=== PATIENT | female | born 1930 | race Caucasian/White ===

== ENCOUNTER 2019-06-23 08:31 | Inpatient (IN) ==
--- NOTE | 2019-06-23 08:47 | PROVIDER DOCUMENTATION ---
HPI-Musculoskeletal Pain/Inj - GENERAL Stated Complaint: fall/right hip pain Time Seen by Provider: 06/23/19 08:34 Source: patient, family - HX OF PRESENT ILLNESS-MUSKULOSKELTAL Nature of Presenting Problem: Patient was at home and opening the utility room when she lost her balance and fell. She c/o right hip pain. She states she hip her head, but had no loc. Quality of Pain: reports: aching Severity in ED: severe Onset/Duration: abrupt, just prior to arrival Timing: still present Modifying Factors: improves with: movement Any recent injury?: Yes Locality of Occurance: Home Similar Symptoms Previously?: No Recently seen or treated by another doctor?: No - FALL INJURY Location of Pain/Injury: reports: lower extremity Pain Radiation: reports: no radiation Reason for Fall: reports: tripped Symptoms prior to fall:: reports: none Loss of Consciousness: no loss of consciousness Injury Associated Symptoms: reports: denies symptoms - HIP/PELVIS PAIN/INJURY Hip Pain Location: reports: hip (R) Pain Radiation: reports: no radiation Review of Systems - Adult - REVIEW OF SYSTEMS - ADULT Constitutional: reports: no symptoms reported Eyes: reports: no symptoms reported Ears, Nose, Mouth & Throat: reports: no symptoms reported Cardiovascular: reports: no symptoms reported Respiratory: reports: no symptoms reported Gastrointestinal: reports: no symptoms reported Genitourinary: reports: no symptoms reported Musculoskeletal: reports: see HPI Integumentary: reports: no symptoms reported Neurological: reports: no symptoms reported Psychiatric: reports: no symptoms reported Past History - Adult - PAST MEDICAL HISTORY-ADULT Review of Records: reports: Old Records Reviewed, Nursing Assessment Review Major Childhood Illnesses: reports: denies history Cardiovascular: reports: CAD, HTN Respiratory: reports: denies history Gastrointestinal: reports: other (irritable bowel like symptoms chronically) Genitourinary: reports: denies history Musculoskeletal: reports: arthritis Neurological: reports: denies history Psychiatric: reports: denies history Endocrine/Immune: reports: denies history - PRIOR SURGERIES/PROCEDURES Surgical/Procedure History: reports: cholecystectomy, back/neck, other (back surgery) - IMMUNIZATION STATUS Childhood Immunizations: See Nurse Assessment Flu Vaccine: See Nurse Assessment - FAMILY HISTORY Family History: reviewed, not pertinent Physical Exam-Injury Related - Physical Exam-Injury Related Initial Vital Signs Reviewed: Yes General Appearance: appears well, alert, mild distress Eyes: PERRL/EOMI Head, Ears, Nose, Mouth & Throat: normocephalic/atraumatic Neck: non-tender Respiratory: chest non-tender, lungs clear Cardiovascular: normal peripheral pulses, regular rate, rhythm, no edema, no gallop, no JVD, no murmur Abdominal Exam: normal bowel sounds, non tender, soft, no organomegaly Female Genitalia/Pelvic Exam: deferred Rectal Exam: deferred Lymphatic: no adenopathy Back Exam: normal inspection Extremity: tenderness (pain over right hip. right leg is shortened. bruise on right schroeder) - Glascow Coma Score Best Eye Response ([place]): (4) open spontaneously Best Verbal Response ([place]): (5) oriented Best Motor Response ([place]): (6) obeys commands Progress - PLAN OF CARE/RESULTS Progress/Plan/Lab Results: Vital Signs - 8 hr 06/23/19 08:38 Temperature 97.8 F Pulse Rate 77 Respiratory Rate 20 Blood Pressure 184/80 O2 Sat by Pulse Oximetry 99 Laboratory Results - last 24 hr 06/23/19 06/23/19 06/23/19 08:48 08:48 08:48 WBC 8.85 RBC 4.15 L Hgb 12.3 Hct 38.9 MCV 93.7 MCH 29.6 MCHC 31.6 L RDW Std Deviation 14.1 Plt Count 283 MPV 11.0 H Immature Gran % (Auto) 0.7 H Neut % (Auto) 54.9 Lymph % (Auto) 34.8 [place] % (Auto) 7.9 Eos % (Auto) 1.4 Baso % (Auto) 0.3 Immature Gran # (Auto) 0.06 H Neut # (Auto) 4.86 Lymph # (Auto) 3.08 [place] # (Auto) 0.70 H Eos # (Auto) 0.12 Baso # (Auto) 0.03 PT INR PTT (Actin FS) 23.8 Sodium 139 Potassium 3.9 Chloride 100 Carbon Dioxide 26 Anion Gap 13 BUN 21 Creatinine 0.9 Estimated GFR/1.73 m2 59 BUN/Creatinine Ratio 23 Glucose 127 H Calculated Osmolality 282 Calcium 9.7 Total Bilirubin 0.31 AST 23 ALT 15 Alkaline Phosphatase 70 Troponin T High Sens Total Protein 7.1 Albumin 4.0 Globulin 3.1 Albumin/Globulin Ratio 1.3 06/23/19 06/23/19 08:48 08:48 WBC RBC Hgb Hct MCV MCH MCHC RDW Std Deviation Plt Count MPV Immature Gran % (Auto) Neut % (Auto) Lymph % (Auto) [place] % (Auto) Eos % (Auto) Baso % (Auto) Immature Gran # (Auto) Neut # (Auto) Lymph # (Auto) [place] # (Auto) Eos # (Auto) Baso # (Auto) PT 13.0 INR 0.97 PTT (Actin FS) Sodium Potassium Chloride Carbon Dioxide Anion Gap BUN Creatinine Estimated GFR/1.73 m2 BUN/Creatinine Ratio Glucose Calculated Osmolality Calcium Total Bilirubin AST ALT Alkaline Phosphatase Troponin T High Sens 26 H Total Protein Albumin Globulin Albumin/Globulin Ratio Orders Category Date Time Status CHEST-PORTABLE [RAD] Stat Exams 06/23/19 08:39 Completed XRAY HIP UNILATERAL RT [RAD] Stat Exams 06/23/19 08:40 Completed CBC WITH ELECTRONIC DIFF [HEME] Stat Lab 06/23/19 08:48 Completed CK PROFILE [SP CHEM] Stat Lab 06/23/19 08:48 Received COMPREHENSIVE METABOLIC PANEL [CHEM] Stat Lab 06/23/19 08:48 Completed PROTIME WITH INR [COAG] Stat Lab 06/23/19 08:48 Completed PTT [COAG] Stat Lab 06/23/19 08:48 Completed TROPONIN T HIGH SENSITIVITY Stat Lab 06/23/19 08:48 Completed Hydromorphone [Dilaudid] Med 06/23/19 08:48 Discontinued 0.5 mg IV NOW ONE EKG [EKG] Stat Ther 06/23/19 09:11 Ordered Result Diagrams: 06/23/19 08:48 06/23/19 08:48 - EKG 1 Time of EKG reading by physician:: 09:34 EKG Read and Signed by:: Martin Bartlett EKG Interpretation (*Must complete 3 of following elements*): Abnormal Rate: 68 Rhythm: sinus [place]: normal QRS: poor R wave progression (no change) ST Wave: non-specific ST changes (t wave inversion laterally. Poss. ischemia. changed from 2018) - CONSULTS/PCP/HOSPITALIST Notification #1 *Consult/PCP/Hospitalist*: Dr Hickey Time Discussed: 09:47 (Admit to hospitalist) #2 Consult: Adrianna CAO Time Discussed: 10:44 Consult Disposition: Will see in ED Departure - Departure Date of Disposition Decision: 06/23/19 Time of Disposition Decision: 10:44 DIAGNOSIS: Abnormal electrocardiogram [ECG] [EKG] Closed right hip fracture Qualifiers: Encounter type: initial encounter Qualified Code(s): S72.001A - Fracture of unspecified part of neck of right femur, initial encounter for closed fracture Disposition: ADMITTED INPATIENT 09 Certified Medical Emergency: Emergent Condition: Fair Referrals and Follow-Ups: Ravinder Cole MD [Primary Care Provider] - - Critical Care Note This patient required my direct & personal management of CC.: No Attestation - Physician/ ZAHRA Attestation Patient care was provided by Advanced Practice Provider:: No The physician spent face to face time with patient:: Yes Advanced Practice Provider documentation review:: Supervising physician onsite and consulted in the evaluation and care of this patient. The physician did have a face to face encounter with the patient.
[2019-06-23] MEDS ORDERED: DILAUDID IV ONE ×2 (08:48→10:48)
--- NOTE | 2019-06-23 09:07 | Diag Imaging Result Doc PS360 ---
EXAM: CHEST-PORTABLE 06/23/2019 HISTORY: fall TECHNIQUE: AP portable semiupright at 0855 COMMENT: There is no evidence of acute cardiac or pulmonary disease. Compared to 12/12/2017 there has been no significant change. IMPRESSION: Stable chest. Electronically signed by Sree Paez 06/23/2019 9:05 AM
--- NOTE | 2019-06-23 09:07 | Diag Imaging Result Doc PS360 ---
EXAM: XRAY HIP UNILATERAL RT 06/23/2019 HISTORY: fall / hip pain TECHNIQUE: Right hip portable AP and crosstable lateral COMMENT: There is a fracture of the right femoral neck. There is extensive calcification in the superficial femoral artery on the left. IMPRESSION: Right femoral neck fracture. Electronically signed by Sree Paez 06/23/2019 9:05 AM
[2019-06-23 09:28] LABS: BASO# 0.03 X1000 (0.0-0.2); BASO% 0.3 % (0.0-0.8); EOS# 0.12 X1000 (0.0-0.7); EOS% 1.4 % (0.0-10.0); HEMATOCRIT 38.9 % (37.0-47.0); HEMOGLOBIN 12.3 g/dL (12.0-16.0); IMM GRAN# 0.06 X1000 (0.0-0.04); IMM GRAN% 0.7 % (0.0-0.5); LYMPH# 3.08 X1000 (1.2-3.4); LYMPH% 34.8 % (20.5-51.1); MCH 29.6 PG (27-31); MCHC 31.6 g/dL (33-37); MCV 93.7 FL (81-99); MONO% 7.9 % (1.7-9.3); NEUT# 4.86 X1000 (1.4-6.5); NEUT% 54.9 % (42.2-75.2); PLT 283 X1000 (130-400); RBC 4.15 XMIL (4.2-5.4); RDW 14.1 % (11.5-14.5); WBC 8.85 X1000 (4.8-10.8)
[2019-06-23 09:37] LABS: ALB/GLOB RATIO 1.3; CALCIUM 9.7 mg/dL (8.8-10.2); CREATININE 0.9 mg/dL (0.5-0.9); INR 0.97; POTASSIUM 3.9 mmol/L (3.5-5.1); TOTAL BILIRUBIN 0.31 mg/dL (0.20-1.00); TOTAL PROTEIN 7.1 g/dL (6.3-8.3)
[2019-06-23] MEDS ORDERED: TYLENOL PO PRN (10:55)
[2019-06-23] MEDS ORDERED: NS 1,000 ML IV SCH (11:00)
[2019-06-23 11:55] LABS: URINE SOURCE CATH
[2019-06-23 12:17] LABS: BILIRUBIN URINE NEGATIVE (NEGATIVE); BLOOD URINE NEGATIVE (NEGATIVE); COLOR YELLOW; GLUCOSE URINE NEGATIVE (NEGATIVE); KETONE URINE NEGATIVE (NEGATIVE); LEUKOCYTES URINE NEGATIVE (NEGATIVE); NITRITE URINE NEGATIVE (NEGATIVE); PROTEIN URINE NEGATIVE (NEGATIVE); SP GRAVITY URINE 1.013; TURBIDITY URINE CLEAR (CLEAR); UROBILINOGEN URINE NORMAL (NORMAL)
[2019-06-23 12:18] LABS: UR EPITHELIAL CELLS <10 /HPF (<10); URINE BACTERIA NEGATIVE /HPF; URINE RBC <10 /HPF (<10); URINE WBC <10 /HPF (<10)
--- NOTE | 2019-06-23 14:43 | Diag Imaging Result Doc PS360 ---
EXAM: CT HEAD/C-SPINE W/O CONTRAST 06/23/2019 HISTORY: mechanical fall and hit head TECHNIQUE: This exam was performed using automated exposure control, adjustment of mA or kV according to patient size, and/or use of iterative reconstruction technique. COMMENT: There are dense calcifications in the vertebral and internal carotid arteries. There is extensive abnormal lucency in the white matter of both hemispheres particularly in the frontal lobes. Compared to 10/13/2017 there has been no significant change in the appearance of the brain. There is no evidence of bleed or abnormal extra-axial fluid collection. The calvarium is intact. The visualized paranasal sinuses are clear. Cervical spine: There are marked degenerative changes in the anterior atlantoaxial joint and the C1-2 facets. This is particularly severe on the right side. There is no evidence of prevertebral soft tissue swelling. There is posterior osteophyte formation at the C2-3 level. There is ankylosis at C3-4 and C4-5. Severe degenerative disc disease is present at C5-6 with posterior osteophyte formation and disc space narrowing and also at the C7-T1 level. There is vacuum phenomenon in the body of C7 on the right. The facets are aligned. There is degenerative facet disease at the C3-4 level on the left with ankylosis and there is ankylosis at C4-5 on the left. There are hypertrophic changes at the C6-7 level on the left and degenerative facet changes in the right C2-3 and C5-6 and C6-7 levels is present. IMPRESSION: Chronic ischemic microvascular white matter disease. Degenerative changes in the cervical spine as described. Electronically signed by Sree Paez 06/23/2019 2:41 PM
[2019-06-23] MEDS: DILAUDID IV PRN ×2 (15:11→22:06)
[2019-06-23] MEDS: ZOFRAN IV PRN ×2 (15:19→22:06)
--- NOTE | 2019-06-23 15:30 | HISTORY AND PHYSICAL ---
PRIMARY CARE PROVIDER: Dr. Ravinder Cole. CHIEF COMPLAINT: Fall with right hip pain. HISTORY OF PRESENT ILLNESS: Ms. Kenzie Sheridan is an 88-year-old female with a medical history of large hiatal hernia and GERD, iron deficiency anemia, interstitial cystitis, hypertension, rheumatoid arthritis, coronary artery disease with a history of coronary artery bypass grafting back in 2000. Is now here after having a fall and experiencing right hip pain with a lump on the back of her head. She states she did not pass out. She did not get dizzy. She simply opened the door, turned around to go back in the opposite direction and lost her balance and fell. Workup revealed that she has a right femoral neck fracture. We will get a head CT to make sure there is no problems with that. Otherwise, there are no other abnormal findings. PAST MEDICAL HISTORY: 1. History of colitis. 2. Osteoarthritis. 3. Rheumatoid arthritis on prednisone. 4. Interstitial cystitis. She still has burning and nocturnal excessive urination. 5. Hypertension. 6. Iron deficiency anemia. 7. Coronary artery disease with NH and CABG x4 back in 2000. 8. Glaucoma with surgery. 9. Large hiatal hernia with GERD and at least 2 reflux spells per day. 10. Pulmonary artery hypertension with a systolic pressure of 51 mmHg back in November 2017 on an echo. SURGICAL HISTORY: 1. Coronary artery bypass grafting x4, November 2000. 2. Hysterectomy. 3. Cholecystectomy. 4. Multiple bilateral foot surgeries to straighten toes due to the arthritis. 5. Intra-abdominal abscess drainage. 6. Bilateral cataracts. 7. Glaucoma surgery. SOCIAL HISTORY: Denies tobacco, alcohol or illicit drug use. Lives at home with her . She has been advised to use a walker or cane, but she does not. She actually has decent balance. She goes to the mall and walks daily. She has home health. FAMILY HISTORY: Denies. ALLERGIES: Tramadol and morphine. HOME MEDICATIONS: Have not been reconciled yet. REVIEW OF SYSTEMS: Fourteen point review of systems are complete and all were negative except for those mentioned in above HPI. PHYSICAL EXAMINATION: VITAL SIGNS: Temperature 97.8 degrees, heart rate 77, respiratory rate 20, blood pressure 184/80, O2 saturation 99% on room air, 5 foot 0 inch tall, 84 pounds, BMI of 16.4. GENERAL: Ms. Kenzie Sheridan is an 88-year-old female. She is in no acute distress. She is able answer questions appropriately. HEENT: Atraumatic, normocephalic. Pupils equal, round, reactive to light. Extraocular movements intact. Mucous membranes are dry. NECK: Trachea midline. CARDIOVASCULAR: S1, S2. Regular rate and rhythm. No rubs, gallops, or murmurs. No lower extremity edema. +2 dorsalis and radial pulses. Negative JVD or carotid bruits. PULMONARY: Clear to auscultate bilateral breath sounds. No accessory muscle use or work of breathing noted. GI: Soft, nontender, nondistended. Positive bowel sounds x4. EXTREMITIES: Unable to move the right lower extremity but can wiggle toes. This is due to the fracture. All other extremities move equally with equal strength with decreased range of motion. NEUROLOGIC: A and O x3. Follows commands. Sensory is intact. SKIN: Warm, dry, intact. LABORATORY DATA: White blood cells 8000, hemoglobin 12, hematocrit 38, platelet count 283,000. INR 0.97, PTT is 23.8. Sodium 139, potassium 3.9, BUN 21, creatinine 0.9, glucose 127, calcium 9.7, bilirubin 0.31, AST 23, ALT 15, CK 82, troponin is 26. ProBNP is 538. Albumin 4.0. IMAGING: Chest x-ray: No acute findings. Right hip x-ray: Right femoral neck fracture. ASSESSMENT AND PLAN: 1. Fall due to balance issues. She had lost her balance, so she will be on fall precautions. 2. Right femoral neck fracture secondary to a mechanical fall. She will be on Manzo's traction. Dr. Cisse has been consulted with plans for surgery tomorrow. Type and screen is obtained, pain medication, antiemetics ordered. She can be with a regular diet up until midnight and she will be NPO. 3. EKG shows lateral T-wave inversions. Apparently, this is new. She has a history of coronary artery disease and coronary artery bypass graft. Troponins 26, not really yet elevated so we will do another round of cardiac enzymes between 3 and 4 today. She denies any chest pain, and will repeat EKG in the morning. 4. Large hiatal hernia with GERD. We will continue with proton pump inhibitor once her home medications are verified. 5. Hypertension. Waiting for home medications to be verified. She is actually hypertensive right now but this is secondary to the pain of the right hip. 6. Rheumatoid arthritis with osteoarthritis. She is on home prednisone. Again, I am still waiting on the home medications to be reconciled so we can get that resumed. 7. Interstitial cystitis. We are going to get a urinalysis. She does state that she has burning when she urinates and she has urinary frequency at night. 8. History of pulmonary artery hypertension, November of 2017 with result of 51 mmHg. No shortness of breath noted at this time. 9. Deep venous thrombosis prophylaxis. SCDs. 10. Head bump. She has got head CT. Dictated by KILEY France for Pedro Hazel MD Addendum: Patient seen and examined by myself. Agree with KILEY note. It reflects my assessment and plan. Patient is being admitted to hospital for right hip fracture. Orthopedics has been consulted. Will monitor patient. closely. cc: KILEY France MD [facility]
[2019-06-23] MEDS ORDERED: BLISTEX MEDICATED BERRY LIP BALM TOP ONE (15:35)
--- NOTE | 2019-06-23 16:10 | ORTHOPAEDICS CONSULTATION ---
DATE: 06/23/2019 CHIEF COMPLAINT: Right hip pain. HISTORY OF PRESENT ILLNESS: Patient was an 88-year-old female who is status post fall earlier this morning at home. The patient reports that she was opening the utility room, lost her balance and fell to the ground, developed immediate pains from her right hip. She denies loss of conscious. Describes pain as being severe in nature. She presented to the emergency room. X- rays were obtained with a right displaced femoral neck fracture. Orthopedic consultation was requested. ALLERGIES: Tramadol and morphine. PAST MEDICAL HISTORY: Rheumatoid arthritis, interstitial cystitis, hypertension, anemia of chronic disease, mild chronic kidney disease, coronary artery disease, glaucoma. PAST SURGICAL HISTORY: Coronary artery bypass grafting, hysterectomy, cholecystectomy, multiple foot surgeries, intra-abdominal abscess drained a couple years ago. PHYSICAL EXAMINATION: General: Patient is awake, alert, and cooperative with exam. Neck/extremities: Cervical spine is nontender to palpation. Her bilateral upper extremities have no acute palpable deformity. Patient has significant deformity of the wrist and fingers secondary to rheumatoid arthritis. She has good capillary refill distally. Her right lower extremity is shortened and externally rotated. Has significant tenderness to palpation. Tenderness to gentle movement. Calf is soft. She has active dorsiflexion, plantar flexion. The left lower extremity has no palpable deformity along the left hip, knee or ankle. She is neurovascularly intact distally. IMAGING: X-rays were reviewed and revealed a right displaced femoral neck fracture. IMPRESSION: Right displaced femoral neck fracture. PLAN: Discussed treatment options with patient and family. At this time, would recommend hemiarthroplasty, right hip. Risks of surgery were explained, including the risks of anesthesia, , bleeding, infection, failure to relieve pain, postoperative stiffness, nerve injury, blood clots, dislocation and other imponderables. All questions were answered. Patient and family agree with treatment plan. Will plan on proceeding with surgery after obtaining preoperative medical clearance. cc: Faizan Cisse MD
--- NOTE | 2019-06-23 18:01 | EKG Report ---
Test Performed on : 06/23/2019 09:30:57 AM Test Reason : hip fracture Blood Pressure : / mmHG Vent. Rate : 068 BPM Atrial Rate : 068 BPM P-R Int : 196 ms QRS Dur : 078 ms QT Int : 370 ms P-R-T Axes : 092 001 -35 degrees QTc Int : 393 ms Undetermined rhythm Septal infarct (cited on or before 23-DEC-2016) ST & T wave abnormality, consider inferolateral ischemia Abnormal ECG When compared with ECG of 07-DEC-2017 06:34, Current undetermined rhythm precludes rhythm comparison, needs review T wave inversion more evident in Inferior leads T wave inversion now evident in Lateral leads QT has shortened Unconfirmed Result
[2019-06-23] MEDS: NORCO-7.5 PO PRN (18:29)
[2019-06-23] MEDS: APRESOLINE PO SCH (22:55)
[2019-06-23] MEDS: NORVASC PO SCH (22:55)
[2019-06-24] MEDS: DILAUDID IV PRN ×2 (01:06→13:32)
[2019-06-24] MEDS: NORCO-7.5 PO PRN ×2 (06:48→18:42)
[2019-06-24 07:12] LABS: BASO# 0.03 X1000 (0.0-0.2); BASO% 0.3 % (0.0-0.8); EOS# 0.05 X1000 (0.0-0.7); EOS% 0.4 % (0.0-10.0); HEMATOCRIT 40.6 % (37.0-47.0); HEMOGLOBIN 12.9 g/dL (12.0-16.0); IMM GRAN# 0.04 X1000 (0.0-0.04); IMM GRAN% 0.4 % (0.0-0.5); LYMPH% 9.8 % (20.5-51.1); MCH 30.1 PG (27-31); MCHC 31.8 g/dL (33-37); MCV 94.6 FL (81-99); MONO# 0.99 X1000 (0.11-0.59); MONO% 8.8 % (1.7-9.3); MPV 10.9 FL (7.4-10.4); NEUT# 8.98 X1000 (1.4-6.5); NEUT% 80.3 % (42.2-75.2); PLT 244 X1000 (130-400); RBC 4.29 XMIL (4.2-5.4); WBC 11.19 X1000 (4.8-10.8)
[2019-06-24 07:55] LABS: AGAP 9; ALB/GLOB RATIO 1.1; ALBUMIN 3.8 g/dL (3.5-5.0); ALKALINE PHOSPHATASE 76 U/L (32-104); BUN 15 mg/dL (8-22); CALCIUM 9.1 mg/dL (8.8-10.2); CHLORIDE 96 mmol/L (98-107); COSMO 267; CREATININE 0.7 mg/dL (0.5-0.9); ESTIMATED GFR > 60; GLUCOSE 103 mg/dL (70-104); GOT 24 U/L (10-30); GPT 15 U/L (10-36); MAGNESIUM 1.4 mg/dL (1.5-2.7); POTASSIUM 3.6 mmol/L (3.5-5.1); SODIUM 133 mmol/L (136-145); TCO2 28 mmol/L (25-35); TOTAL PROTEIN 7.2 g/dL (6.3-8.3)
--- NOTE | 2019-06-24 08:34 | ORTHOPAEDICS PROGRESS NOTE ---
DATE: 06/24/2019 SUBJECTIVE: The patient is a pleasant, 88-year-old female, who is 1 day status post fall, sustaining a right displaced femoral neck fracture. She was admitted to the hospital, and underwent preoperative medical clearance. She presented to the emergency room, and x-rays revealed a right displaced femoral neck fracture. PHYSICAL EXAMINATION: The patient's right lower extremity is shortened and externally rotated. Calf is soft. She has active dorsiflexion and plantar flexion. LABORATORY DATA: Her hemoglobin and hematocrit are 12.9 and 40.6. IMPRESSION: Right displaced femoral neck fracture. PLAN: She is scheduled to undergo an EKG this morning, and she is planning on proceeding with hemiarthroplasty of the right hip if she is medically cleared later this morning. Risks and benefits were discussed, and all questions were answered. The patient and family agree with treatment plan. cc: Faizan Cisse MD
[2019-06-24] MEDS ORDERED: FENTANYL ONE (09:16)
[2019-06-24] MEDS ORDERED: XYLOCAINE-MPF 2% ONE (09:16)
[2019-06-24] MEDS ORDERED: DIPRIVAN 1% ONE (09:16)
[2019-06-24] MEDS ORDERED: NEOSPORIN G.U. IRRIGANT ONE (09:41)
[2019-06-24] MEDS ORDERED: DILAUDID IV ONE (09:51)
--- NOTE | 2019-06-24 10:20 | PROGRESS NOTE ---
DATE: 06/24/2019 SUBJECTIVE: Patient reports feeling, still, excruciating pain in the right hip. OBJECTIVE: Vital Signs: Temperature 98.2 degrees, heart rate 71, respiratory rate 17, blood pressure 142/52, O2 saturation 100% on 2 L nasal cannula. General Examination: This is a chronically ill-appearing, 88-year-old, female lying in bed, in no acute distress. Cardiovascular Examination: S1 and S2 heard. No murmurs, gallops, or rubs. Regular rate and rhythm. Respiratory Examination: Clear bilaterally to auscultation. No work of breathing or using accessory muscles. Abdomen: Soft. Nontender to palpation. Nondistended. Bowel sounds present. No organomegaly. Extremities: Unable to move the right lower extremity. She can still wiggle the toes. Neurological Examination: The patient is alert and oriented x3. Moves 4 extremities. Laboratory Data: Reviewed. ASSESSMENT AND PLAN: 1. Right femoral neck fracture secondary to mechanical fall. The patient is in Manzo traction. Orthopedics have been consulted. From our standpoint, the patient is medically stable and we can proceed with surgery. 2. Large hiatal hernia with gastroesophageal reflux disease. We will continue with Protonix. 3. Hypertension. We had restarted blood pressure medications yesterday. She has a better blood pressure today. We will continue to monitor. 4. Rheumatoid arthritis with osteoarthritis. She is on home prednisone, I think, at this point. We will restart small doses of prednisone by now. 5. History of pulmonary artery hypertension. Aware. She is not complaining of any shortness of breath. We will continue to monitor. 6. Interstitial cystitis. Urinalysis has been ordered in the emergency room. That is completely normal so, at this point, no concerns for any infection. cc: Pedro Hazel MD
[2019-06-24] MEDS ORDERED: KEFZOL 1 GM/D5W 1 GM/50 ML IVPB ONE (10:27)
[2019-06-24] MEDS ORDERED: EPHEDRINE ONE (10:52)
[2019-06-24] MEDS ORDERED: ZOFRAN ONE (10:57)
[2019-06-24] MEDS ORDERED: MORPHINE IV PRN (12:23)
[2019-06-24] MEDS ORDERED: ZOFRAN IV PRN (12:23)
[2019-06-24] MEDS ORDERED: OXY IR PO PRN (12:23)
[2019-06-24] MEDS ORDERED: HALDOL IV PRN (12:30)
--- NOTE | 2019-06-24 12:33 | Diag Imaging Result Doc PS360 ---
EXAM: HIP 1 VIEW RIGHT 06/24/2019 HISTORY: rt bipolar hip TECHNIQUE: Right hip AP portable at 1222 COMMENT: There is a bipolar hip prosthesis. No evidence of acute bony abnormality is otherwise present. IMPRESSION: Postsurgical changes. Electronically signed by Sree Paez 06/24/2019 12:31 PM
[2019-06-24] MEDS ORDERED: NS 1,000 ML ONE (12:34)
[2019-06-24] MEDS ORDERED: HYDROCODONE/APAP 7.5-325/15 ML PO ONE (12:45)
--- NOTE | 2019-06-24 14:12 | OPERATIVE NOTE ---
PROCEDURE DATE: 06/24/2019 PREOPERATIVE DIAGNOSIS: Right displaced femoral neck fracture. POSTOPERATIVE DIAGNOSIS: Right displaced femoral neck fracture. PROCEDURE PERFORMED: Hemiarthroplasty of right hip with DePuy Actis size 4 press-fit stem, a 28, + 1.5 femoral head, with a 28 x 42 bipolar head. SURGEON: Faizan Cisse MD. ANESTHESIA: Spinal. IV FLUIDS: Lactated Ringer's, 800 mL. ESTIMATED BLOOD LOSS: 100 mL. COMPLICATIONS: None. INDICATIONS: This is a pleasant, 88-year-old female who is 1 day status post fall, sustaining a right displaced femoral neck fracture. She was admitted to the hospital. Orthopedic consultation was requested. Recommendation to proceed with hemiarthroplasty of the right hip was offered. Risks and benefits of surgery were explained including the risks of anesthesia, , bleeding, infection, failure to relieve pain, postoperative stiffness, nerve injury, blood clots, dislocation, and other imponderables. All questions were answered. The patient and family wished to proceed with surgery. DETAILS OF OPERATION: The patient was taken to the operating room and underwent spinal anesthesia. After adequate anesthesia was obtained, she was placed in left lateral decubitus position on a mei bag with an axillary roll. The right hip was subsequently prepped and draped in the usual sterile fashion. A standard lateral incision was made on the hip and a posterior approach was performed. The incision was carried down through the gluteus jordin. Charnley retractors were then placed. The piriformis tendon was then identified and a stay suture was placed. The piriformis tendon along with short external rotators were then released. A T-shaped capsulotomy was then performed. A #1 Vicryl was then placed on each corner of the posterior capsule. Attention then turned to the femoral neck where approximately 1 fingerbreadth proximal to the lesser trochanter, the femoral neck was resected. After this had been performed, the femoral head was then removed. After that, a box chisel was then used to start in the intramedullary canal of the femur. This was followed by a starting hand model. Sequential broaching was then performed up to a size 4. This was then reamed. A calcar planer was then placed and reaming of the calcar was performed. A 28, +1.5 femoral head with a 28 x 42 bipolar head was then placed. The hip was then reduced, carried through a range of motion. It had excellent stability and range of motion of the hip. The trial implants were then removed. The wound was copiously irrigated with pulsatile lavage. A size 4 DePuy Actis press-fit stem was then impacted. It had good fit. A 28, +1.5 femoral head with a 28 x 42 bipolar head was then placed. The hip was then reduced, carried through a range of motion. It had a good range of motion and good stability. The wound was copiously irrigated. Number 1 Vicryl was then used to repair the posterior capsule, followed by #1 Vicryl to repair the piriformis tendon. Copious irrigation was then performed once again with the pulsatile lavage. The Charnley retractor was removed. Irrigation was performed once again. After this had been conducted, #1 Vicryl was then used to repair the gluteus jordin in a running fashion, 2-0 Vicryl was used to repair the subcutaneous tissue, followed by skin shira. Adaptic, sterile 4 x 4s, ABD pad, and tape were applied to the right hip. The patient tolerated the procedure well and was transferred to the recovery room in stable condition. cc: Faizan Cisse MD
[2019-06-24] MEDS ORDERED: BENADRYL IV PRN (15:13)
[2019-06-24] MEDS ORDERED: BENADRYL PO PRN (15:31)
[2019-06-24] MEDS: COZAAR PO SCH (15:35)
[2019-06-24] MEDS: APRESOLINE PO SCH ×3 (15:35→22:30)
[2019-06-24] MEDS: NORVASC PO SCH ×2 (15:36→22:35)
[2019-06-24] MEDS: TYLENOL PO SCH (15:51)
--- NOTE | 2019-06-24 17:05 | EKG Report ---
Test Performed on : 06/24/2019 06:39:09 AM Test Reason : twave eval preop Blood Pressure : / mmHG Vent. Rate : 076 BPM Atrial Rate : 076 BPM P-R Int : 210 ms QRS Dur : 088 ms QT Int : 346 ms P-R-T Axes : 085 004 -41 degrees QTc Int : 389 ms Sinus rhythm. with 1st degree AV block. ST & T wave abnormality, consider lateral ischemia Abnormal ECG When compared with ECG of 23-JUN-2019 09:30, (Unconfirmed) Previous ECG has undetermined rhythm, needs review Confirmed by Claudio RAYGOZA, Fracisco Han ([id number]) on 06/24/2019 10:26:54 PM
[2019-06-24] MEDS: KEFZOL 1 GM/D5W 1 GM/50 ML IVPB IV SCH (18:44)
[2019-06-24] MEDS: COLACE PO SCH (22:35)
[2019-06-24] MEDS: PREDNISONE PO SCH (22:38)
[2019-06-25] MEDS: TYLENOL PO SCH ×4 (00:02→16:45)
[2019-06-25] MEDS: NS 1,000 ML IV SCH ×2 (01:33→15:40)
[2019-06-25] MEDS: KEFZOL 1 GM/D5W 1 GM/50 ML IVPB IV SCH ×2 (01:33→10:43)
--- NOTE | 2019-06-25 06:59 | ORTHOPAEDICS PROGRESS NOTE ---
DATE: 06/25/2019 SUBJECTIVE: The patient is a pleasant, 88-year-old female who is 1 day status post hemiarthroplasty of the right hip. Patient is currently resting comfortably. PHYSICAL EXAMINATION: The patient's right lower extremity dressing is intact. Her calf is soft. She is able to flex and extend her toes. Compartments are soft. LABORATORY DATA: Her labs are pending. IMPRESSION: Postoperative day #1 status post hemiarthroplasty of the right hip. PLAN: At this point, we will begin mobilization, physical therapy with weightbearing as tolerated to the right lower extremity. We will consult [facility] for discharge planning. cc: Faizan Cisse MD
[2019-06-25 07:30] LABS: BASO# 0.01 X1000 (0.0-0.2); BASO% 0.1 % (0.0-0.8); HEMATOCRIT 33.4 % (37.0-47.0); HEMOGLOBIN 10.4 g/dL (12.0-16.0); IMM GRAN# 0.05 X1000 (0.0-0.04); IMM GRAN% 0.3 % (0.0-0.5); LYMPH# 0.65 X1000 (1.2-3.4); LYMPH% 3.3 % (20.5-51.1); MCH 29.5 PG (27-31); MCHC 31.1 g/dL (33-37); MCV 94.6 FL (81-99); MONO# 1.04 X1000 (0.11-0.59); MONO% 5.4 % (1.7-9.3); MPV 11.2 FL (7.4-10.4); NEUT# 17.67 X1000 (1.4-6.5); NEUT% 90.9 % (42.2-75.2); PLT 215 X1000 (130-400); RBC 3.53 XMIL (4.2-5.4); RDW 13.8 % (11.5-14.5); WBC 19.42 X1000 (4.8-10.8)
[2019-06-25] MEDS: XARELTO PO SCH (07:37)
[2019-06-25 07:48] LABS: AGAP 10; ALBUMIN 2.8 g/dL (3.5-5.0); ALKALINE PHOSPHATASE 65 U/L (32-104); BUN 12 mg/dL (8-22); CALCIUM 8.6 mg/dL (8.8-10.2); CHLORIDE 101 mmol/L (98-107); COSMO 274; CREATININE 0.7 mg/dL (0.5-0.9); ESTIMATED GFR > 60; GLUCOSE 137 mg/dL (70-104); GOT 38 U/L (10-30); GPT 18 U/L (10-36); MAGNESIUM 1.2 mg/dL (1.5-2.7); POTASSIUM 3.4 mmol/L (3.5-5.1); SODIUM 136 mmol/L (136-145); TCO2 25 mmol/L (25-35); TOTAL BILIRUBIN 0.52 mg/dL (0.20-1.00); TOTAL PROTEIN 5.7 g/dL (6.3-8.3)
[2019-06-25] MEDS: NORCO-7.5 PO PRN (08:13)
[2019-06-25] MEDS: PREDNISONE PO SCH (08:14)
[2019-06-25] MEDS: NORVASC PO SCH ×2 (08:14→23:02)
[2019-06-25] MEDS: APRESOLINE PO SCH ×3 (08:14→23:02)
[2019-06-25] MEDS: FERROUS SULFATE PO SCH (08:15)
[2019-06-25] MEDS: COZAAR PO SCH (08:15)
[2019-06-25] MEDS ORDERED: MAGNESIUM SULFATE 2 GM/S.W.I. 2 GM/50 ML IVPB IV ONE (08:45)
[2019-06-25 10:16] LABS: BANDS 10 % (0-1); HYPOCHROM 1+; LYMPHS 2 % (21-51); MONO 2 % (1-9); SEGS 86 % (42-75)
--- NOTE | 2019-06-25 10:32 | PROGRESS NOTE ---
DATE: 06/25/2019 SUBJECTIVE: The patient reports still hurting in the right hip, but better in comparing with yesterday. OBJECTIVE: Vital Signs: Temperature 98.5 degrees, heart rate 76, respiratory rate 20, blood pressure 126/46, and O2 saturation 100% on room air. General: On examination, this is a frail 88- year-old female lying in bed, in no acute distress. HEENT: Head is normocephalic and atraumatic. Cardiovascular: S1, S2 heard. No murmurs, gallops, or rubs. Regular rate and rhythm. Respiratory: Clear bilaterally to auscultation. No work of breathing or using accessory muscles. Abdomen: Soft, nontender to palpation. Nondistended. Bowel sounds present. No organomegaly. Extremities: No clubbing, cyanosis, or edema. Peripheral pulses present in both legs. Neurological: The patient is alert and oriented x3. Moves 4 extremities. LABORATORY DATA: Reviewed. White blood cell count 19.42, hemoglobin 10.4, hematocrit 33.4, platelets 215,000. Potassium 3.4, magnesium 1.2. ASSESSMENT AND PLAN: 1. Right femoral neck fracture, status post hemiarthroplasty of the right hip. The patient reports feeling okay. Pain seems to be under control. We will continue with the same management. front worker has been consulted for discharge planning. 2. Hypertension. Blood pressure is under control. We will continue with the same management. 3. Rheumatoid arthritis with osteoarthritis. We will continue with prednisone. She is actually requiring 5 mg by mouth. 4. History of pulmonary hypertension. We will continue with home medication. 5. Interstitial cystitis. Aware. No urinary tract infection at this point. cc: Pedro Hazel MD
[2019-06-25] MEDS: COLACE PO SCH (23:02)
[2019-06-26] MEDS: TYLENOL PO SCH ×3 (00:42→16:15)
[2019-06-26] MEDS: NORCO-7.5 PO PRN ×2 (04:52→21:58)
[2019-06-26] MEDS: XARELTO PO SCH ×2 (04:52→06:11)
[2019-06-26] MEDS: MILK OF MAGNESIA PO PRN (04:52)
[2019-06-26] MEDS: NS 1,000 ML IV SCH (06:11)
[2019-06-26 07:18] LABS: BASO# 0.01 X1000 (0.0-0.2); BASO% 0.1 % (0.0-0.8); EOS# 0.03 X1000 (0.0-0.7); EOS% 0.2 % (0.0-10.0); HEMATOCRIT 27.9 % (37.0-47.0); HEMOGLOBIN 8.9 g/dL (12.0-16.0); IMM GRAN# 0.04 X1000 (0.0-0.04); IMM GRAN% 0.3 % (0.0-0.5); LYMPH# 0.68 X1000 (1.2-3.4); LYMPH% 5.4 % (20.5-51.1); MCH 29.8 PG (27-31); MCHC 31.9 g/dL (33-37); MCV 93.3 FL (81-99); MONO# 0.77 X1000 (0.11-0.59); MONO% 6.1 % (1.7-9.3); MPV 11.4 FL (7.4-10.4); NEUT# 11.12 X1000 (1.4-6.5); NEUT% 87.9 % (42.2-75.2); PLT 190 X1000 (130-400); RBC 2.99 XMIL (4.2-5.4); RDW 13.6 % (11.5-14.5); WBC 12.65 X1000 (4.8-10.8)
--- NOTE | 2019-06-26 07:26 | PROGRESS NOTE ---
DATE: 06/26/2019 SUBJECTIVE: Patient reports there is still pain in the right hip while she tries to move but definitely pain is getting better in comparing with on admission. OBJECTIVE: Vital Signs: Temperature 98.8 degrees, heart rate 84, respiratory rate 16, blood pressure 131/45, O2 saturation 98% on 2 L nasal cannula. General: This is a frail, chronically- ill appearing 88-year-old female, lying in bed, in no acute distress. Cardiovascular: S1, S2 heard. No murmurs, gallops, or rubs. Regular rate and rhythm. Respiratory: Clear bilaterally to auscultation. No work of breathing or using accessory muscles. Abdomen: Soft, nontender to palpation. Bowel sounds present. No organomegaly. Extremities: No clubbing, cyanosis, or edema. Peripheral pulses present in both legs. Neurological: The patient is alert, oriented x3. Moves 4 extremities. LABORATORY DATA: Pending at the time of my dictation. ASSESSMENT AND PLAN: 1. Right femoral neck fracture status post hemiarthroplasty of the right hip. Clinically, this patient is doing fine even though she is still in pain but definitely that is getting better. We will continue with physical therapy. Orthopedics following this patient. We will follow recommendations. 2. Leukocytosis, most related to her chronic steroid use. In this case, is prednisone 5 mg p.o. daily that she has been taking for awhile. At this point, we will continue to monitor. 3. Hypertension. Blood pressure is under control. We will continue with the same management. 4. Rheumatoid arthritis with osteoarthritis. We will continue with prednisone. That is reason why the white cell count is elevated. We will continue to monitor. 5. History of pulmonary hypertension. We will continue home medication. 6. Interstitial cystitis. Aware. No the urinary infection at this time. 7. Disposition. Patient is working with Physical Therapy. As soon as she is cleared by Orthopedics, she will be going to rehab facility. cc: Pedro Hazel MD
[2019-06-26 07:38] LABS: AGAP 8; ALBUMIN 2.6 g/dL (3.5-5.0); ALKALINE PHOSPHATASE 57 U/L (32-104); BUN 14 mg/dL (8-22); CALCIUM 8.4 mg/dL (8.8-10.2); CHLORIDE 105 mmol/L (98-107); COSMO 275; CREATININE 0.6 mg/dL (0.5-0.9); ESTIMATED GFR > 60; GLUCOSE 103 mg/dL (70-104); GOT 29 U/L (10-30); GPT 14 U/L (10-36); MAGNESIUM 1.6 mg/dL (1.5-2.7); POTASSIUM 3.1 mmol/L (3.5-5.1); SODIUM 137 mmol/L (136-145); TCO2 24 mmol/L (25-35); TOTAL BILIRUBIN 0.37 mg/dL (0.20-1.00); TOTAL PROTEIN 5.2 g/dL (6.3-8.3)
[2019-06-26 08:28] LABS: BANDS 4 % (0-1); LYMPHS 4 % (21-51); MONO 8 % (1-9); SEGS 82 % (42-75)
[2019-06-26] MEDS: PREDNISONE PO SCH (09:01)
[2019-06-26] MEDS: APRESOLINE PO SCH ×3 (09:01→21:58)
[2019-06-26] MEDS: FERROUS SULFATE PO SCH (09:02)
[2019-06-26] MEDS: COZAAR PO SCH (09:03)
[2019-06-26] MEDS: NORVASC PO SCH ×2 (09:03→21:58)
[2019-06-26] MEDS: PERIDEX MT SCH ×2 (09:04→21:58)
--- NOTE | 2019-06-26 09:42 | ORTHOPAEDICS PROGRESS NOTE ---
DATE: 06/26/2019 SUBJECTIVE: The patient is a pleasant, 88-year-old female who is 2 days status post hemiarthroplasty of the right hip. She is currently resting comfortably. PHYSICAL EXAMINATION: On physical examination of the patient's right lower extremity, her wound looks good. There are no signs or symptoms of infection. Calf is soft. She has active dorsiflexion and plantar flexion. LABORATORY DATA: Her labs are pending this morning. Her hemoglobin and hematocrit from yesterday were 10.4 and 33.4. IMPRESSION: Postoperative day #2 status post hemiarthroplasty of right hip. PLAN: At this point, we will continue mobilization with physical therapy, weightbearing as tolerated to the right lower extremity. services engineer have been consulted for discharge planning. cc: Faizan Csise MD
[2019-06-26] MEDS: COLACE PO SCH (21:59)
[2019-06-27] MEDS: TYLENOL PO SCH ×3 (02:30→16:18)
[2019-06-27] MEDS ORDERED: KLOR-CON PO ONE (06:33)
[2019-06-27 07:20] LABS: BASO# 0.02 X1000 (0.0-0.2); BASO% 0.2 % (0.0-0.8); EOS# 0.11 X1000 (0.0-0.7); EOS% 0.9 % (0.0-10.0); HEMOGLOBIN 9.1 g/dL (12.0-16.0); IMM GRAN# 0.03 X1000 (0.0-0.04); IMM GRAN% 0.3 % (0.0-0.5); LYMPH# 0.82 X1000 (1.2-3.4); LYMPH% 7.1 % (20.5-51.1); MCH 29.5 PG (27-31); MCHC 31.4 g/dL (33-37); MCV 94.2 FL (81-99); MONO# 0.58 X1000 (0.11-0.59); MPV 11.2 FL (7.4-10.4); NEUT# 10.02 X1000 (1.4-6.5); NEUT% 86.5 % (42.2-75.2); PLT 190 X1000 (130-400); RBC 3.08 XMIL (4.2-5.4); RDW 13.7 % (11.5-14.5); WBC 11.58 X1000 (4.8-10.8)
[2019-06-27 07:39] LABS: AGAP 10; ALB/GLOB RATIO 0.8; ALBUMIN 2.5 g/dL (3.5-5.0); ALKALINE PHOSPHATASE 73 U/L (32-104); BUN 18 mg/dL (8-22); CHLORIDE 105 mmol/L (98-107); COSMO 277; CREATININE 0.6 mg/dL (0.5-0.9); ESTIMATED GFR > 60; GLUCOSE 96 mg/dL (70-104); GOT 29 U/L (10-30); GPT 13 U/L (10-36); MAGNESIUM 1.6 mg/dL (1.5-2.7); POTASSIUM 3.3 mmol/L (3.5-5.1); SODIUM 138 mmol/L (136-145); TCO2 23 mmol/L (25-35); TOTAL BILIRUBIN 0.39 mg/dL (0.20-1.00); TOTAL PROTEIN 5.7 g/dL (6.3-8.3)
[2019-06-27 07:55] LABS: LYMPHS 7 % (21-51); MONO 1 % (1-9); SEGS 92 % (42-75)
--- NOTE | 2019-06-27 08:07 | PROGRESS NOTE ---
DATE: 06/27/2019 SUBJECTIVE: The patient reports mild pain in the right hip while she tries to walk with physical therapy. No other complaints noted. OBJECTIVE: Vital Signs: Temperature 98.4, heart rate 90, respiratory rate 16, blood pressure 155/57, and O2 saturation 99% on 2 L nasal cannula. General: Chronically ill-looking and frail 88-year-old female lying in bed in no acute distress. Cardiovascular: S1, S2 heard. No murmurs, gallops, or rubs. Regular rate and rhythm. Respiratory: Clear bilaterally to auscultation. No work of breathing or using accessory muscles. Abdomen: Soft. Nontender to palpation. Bowel sounds present. No organomegaly. Extremities: No clubbing, cyanosis, or edema. Left hip covered by dressing. Neurological: Patient alert and oriented x3. Moves all 4 extremities. LABORATORY DATA: Pending at time of dictation. ASSESSMENT AND PLAN: 1. Right femoral neck fracture status post hemiarthroplasty of right hip. Clinically, this patient continues to improve. The patient reports mild to moderate pain when she started moving around. Physical Therapy is on board. We will follow up with this on board. Orthopedics following this patient. We will follow recommendations. 2. Hypertension. Blood pressure is under control. We will continue with same management. 3. Rheumatoid arthritis with osteoarthritis. Patient continues to be on prednisone, that is the reason why this patient has leukocytosis. We will continue to monitor. 4. History of pulmonary hypertension. We will continue home medications. 5. Interstitial cystitis. Aware. No UTI at this time. 6. Disposition. At this point, the patient is being followed with orthopedics. The patient is going to be sent to rehab once she is cleared by Orthopedics Surgery. cc: Pedro Hazel MD
[2019-06-27] MEDS: NS 1,000 ML IV SCH (08:09)
[2019-06-27] MEDS: XARELTO PO SCH (08:13)
[2019-06-27] MEDS: NORCO-7.5 PO PRN (09:17)
[2019-06-27] MEDS: APRESOLINE PO SCH ×3 (09:18→20:16)
[2019-06-27] MEDS: NORVASC PO SCH ×2 (09:18→20:17)
[2019-06-27] MEDS: FERROUS SULFATE PO SCH (09:18)
[2019-06-27] MEDS: PREDNISONE PO SCH (09:19)
[2019-06-27] MEDS: COZAAR PO SCH (09:19)
[2019-06-27] MEDS: PERIDEX MT SCH ×2 (09:19→20:15)
[2019-06-27] MEDS: MILK OF MAGNESIA PO PRN (20:15)
[2019-06-27] MEDS: COLACE PO SCH (20:16)
[2019-06-28] MEDS: TYLENOL PO SCH ×2 (02:15→09:34)
[2019-06-28] MEDS: NORCO-7.5 PO PRN (02:47)
[2019-06-28] MEDS: XARELTO PO SCH (06:50)
[2019-06-28 07:06] LABS: BASO# 0.02 X1000 (0.0-0.2); BASO% 0.3 % (0.0-0.8); EOS# 0.14 X1000 (0.0-0.7); EOS% 1.9 % (0.0-10.0); HEMATOCRIT 26.9 % (37.0-47.0); HEMOGLOBIN 8.3 g/dL (12.0-16.0); IMM GRAN# 0.02 X1000 (0.0-0.04); IMM GRAN% 0.3 % (0.0-0.5); LYMPH% 9.4 % (20.5-51.1); MCHC 30.9 g/dL (33-37); MCV 94.1 FL (81-99); MONO# 0.46 X1000 (0.11-0.59); MONO% 6.2 % (1.7-9.3); NEUT# 6.07 X1000 (1.4-6.5); NEUT% 81.9 % (42.2-75.2); PLT 218 X1000 (130-400); RBC 2.86 XMIL (4.2-5.4); RDW 13.9 % (11.5-14.5); WBC 7.41 X1000 (4.8-10.8)
[2019-06-28 08:16] LABS: AGAP 3; ALB/GLOB RATIO 0.8; ALBUMIN 2.5 g/dL (3.5-5.0); ALKALINE PHOSPHATASE 74 U/L (32-104); BUN 18 mg/dL (8-22); CALCIUM 8.7 mg/dL (8.8-10.2); CHLORIDE 101 mmol/L (98-107); COSMO 274; CREATININE 0.6 mg/dL (0.5-0.9); ESTIMATED GFR > 60; GLUCOSE 95 mg/dL (70-104); GOT 28 U/L (10-30); GPT 14 U/L (10-36); MAGNESIUM 1.7 mg/dL (1.5-2.7); POTASSIUM 4.2 mmol/L (3.5-5.1); SODIUM 136 mmol/L (136-145); TCO2 32 mmol/L (25-35); TOTAL BILIRUBIN 0.47 mg/dL (0.20-1.00); TOTAL PROTEIN 5.5 g/dL (6.3-8.3)
[2019-06-28] MEDS: PREDNISONE PO SCH (09:34)
[2019-06-28] MEDS: COZAAR PO SCH (09:34)
[2019-06-28] MEDS: FERROUS SULFATE PO SCH (09:34)
[2019-06-28] MEDS: APRESOLINE PO SCH ×2 (09:35→14:25)
[2019-06-28] MEDS: PERIDEX MT SCH (09:35)
[2019-06-28] MEDS: NORVASC PO SCH (09:35)
[2019-06-28] MEDS: MILK OF MAGNESIA PO PRN (09:44)
[2019-06-28] MEDS ORDERED: OXY IR PO PRN (10:01)
[2019-06-28] MEDS ORDERED: DULCOLAX PR ONE (13:25)
--- NOTE | 2019-06-28 14:41 | DISCHARGE SUMMARY ---
ADMISSION DATE: 06/23/2019 DISCHARGE DATE: 06/28/2019 DISCHARGE DIAGNOSES: 1. Right femoral neck fracture secondary to mechanical fall surgically fixed. 2. Large hiatal hernia. 3. Hypertension. 4. Rheumatoid arthritis with osteoarthritis. 5. Interstitial cystitis. 6. History of pulmonary arterial hypertension. CONSULTATIONS: Dr. Cisse from Orthopedics. PROCEDURES: 1. Chest x-ray done on admission showed stable chest. 2. Hip x-ray showed right femoral neck fracture. 3. Hemiarthroplasty of the right hip with DePuy active size [address] Faizan Cisse. HOSPITAL COURSE: This is an 88-year-old female with history of hiatal hernia and GERD, who was brought to the emergency department after having a fall and experiencing right hip pain with a lump on the back of the head. She states that she didn't pass out. Upon ER evaluation, she was found out to have a right hip fracture. That was fixed by Dr. Cisse with the procedure as described above. Patient reports feeling fine after the procedure complaining of pain in the surgical area, but we were adjusting the doses of her medications. She was working hard with physical therapy. She has been cleared by Orthopedics so she is going to rehab facility today. DISCHARGE PHYSICAL EXAMINATION: Vitals: Temperature 97.7 degrees, heart rate 78, respiratory rate 20, blood pressure 140/46, and O2 saturation 99% on 2 L nasal cannula. General: This is a chronically ill-looking, 88-year-old female lying in bed in no acute distress. Cardiovascular: S1, S2 heard. No murmurs, gallops, or rubs. Regular rate and rhythm. Lungs: Clear bilaterally to auscultation. No work of breathing or using accessory muscles. Abdomen: Soft and nontender to palpation. Bowel sounds present. No organomegaly. Extremities: No clubbing, cyanosis, or edema. Peripheral pulses present in both legs. Neurological: The patient is alert and oriented x3. Moves all 4 extremities. DISCHARGE DISPOSITION: Patient is going to rehab facility in [facility]. MEDICATIONS: 1. Oxy IR 5 mg 1 to 2 tablets p.o. every 3 hours as needed for pain. 2. Ferrous Sulfate 325 mg 1 tablet p.o. daily. 3. Milk of Magnesia 30 mL as needed for constipation. 4. Xarelto 10 mg 1 tablet p.o. daily for 35 days. 5. Colace 200 mg 1 tablet p.o. at bedtime. 6. Tylenol 1000 mg p.o. every 8 hours as needed for pain. 7. Losartan 50 mg 1 tablet p.o. daily. 8. Prednisone 5 mg 1 tablet p.o. daily. 9. Hydralazine 5 mg 1 tablet p.o. 3 times per day. 10. Amlodipine 5 mg 1 tablet p.o. twice daily. 11. Protonix 40 mg 1 tablet p.o. daily. TIME SPENT: Time discharging this patient is 33 minutes. cc: Pedro Hazel MD
--- NOTE | 2019-06-28 14:51 | PROGRESS NOTE ---
DATE: 06/28/2019 SUBJECTIVE: The patient reports still having some pain when she walks with physical therapy. No other complaints noted. OBJECTIVE: Vital Signs: Temperature 97.7 degrees, heart rate 78, respiratory rate 20, blood pressure 140/46, O2 saturation 99% on 2 L nasal cannula General: This is a frail 88-year-old female lying in bed, in no acute distress. Cardiovascular: S1, S2 heard. No murmurs, gallops, or rubs. Regular rate and rhythm. Respiratory: Clear bilaterally to auscultation. No work of breathing or using accessory muscles. Abdomen: Soft, nontender to palpation. Bowel sounds present. No organomegaly. Extremities: No clubbing, cyanosis, or edema. Peripheral pulses present in both legs. Left hip covered with dressing. Neurological: Patient is alert and oriented x3. Moves 4 extremities. LABORATORY DATA: White cell count 7.41, hemoglobin 8.3, hematocrit 26.9, and platelets 218,000 with normal BMP. ASSESSMENT AND PLAN: 1. Right femoral neck fracture status post hemiarthroplasty of the right hip. Clinically, this patient continues to improve. She is walking with Physical Therapy. Pain is not completely well controlled so we are going to increase the dose of oxycodone from 5 mg to 10 mg p.o. q.3 hours as needed for pain. We will continue to monitor. Orthopedics following this patient. We will follow recommendations. 2. Hypertension. Blood pressure is under control. We will continue with the same management. 3. Rheumatoid arthritis with osteoarthritis. We will continue with prednisone. 4. History of pulmonary hypertension. Will continue home medications. 5. Interstitial cystitis. Aware, no urine infection at this time. DISPOSITION: At this point, the patient is being followed by Orthopedics, and she will be sent to rehab facility whenever she is cleared by orthopedics. cc: Pedro Hazel MD
[2019-06-28 15:28] VITALS: BP 114/51
--- NOTE | 2019-06-28 17:12 | Diag Imaging Result Doc PS360 ---
EXAM: XRAY HIP UNILATERAL LT HISTORY: fell in room/ getting ready to leave for rehab TECHNIQUE: Two views COMPARISON: None. FINDINGS: No fracture. No dislocation. IMPRESSION: No acute bony injury. Electronically signed by Yonathan Hickey 06/28/2019 5:10 PM
== END 2019-06-28 17:32 | DRG 470 ==
LOC: SUPCPDRO → ED 08:31 → 4N 11:11
PROVIDERS: ATTEND Internal Medicine